=== PATIENT | female | born 1975 | race Caucasian/White ===

== ENCOUNTER 2017-09-26 19:55 | Emergency (ER) | payer SELFPAY, OTHER | END 2017-09-26 20:53 | disposition left against medical advice (07) | LOC: PHED 19:55 | DX: R10.9 Unspecified abdominal pain (principal); Z53.21 Procedure and treatment not carried out due to patient leaving prior to being seen by health care provider | CPT/HCPCS: 99281 ==

== ENCOUNTER 2017-09-26 22:34 | Emergency (ER) | payer OTHER ==
[~2017-09-26 22:34] MED LIST: MELO7.5 PO; METH750T2 PO; MONT10TA2 PO; VENTAER INH
[2017-09-26 23:02] VITALS: BP 137/87; PULSE 99; RESP 18; TEMP 97.8; O2SAT 100
[2017-09-27] MEDS ORDERED: VALT500T PO
[2017-09-27] MEDS ORDERED: LEVO.1 PO
[2017-09-27] MEDS ORDERED: MONT10TA2 PO
[2017-09-27] MEDS ORDERED: SODIUM CHLOR 0.9% 1000 ML INJ 1,000 ML IV SCH (00:20)
[2017-09-27] MEDS ORDERED: MORPHINE SULFATE 4 MG/ML INJ IV PUSH ONE (00:30)
[2017-09-27] MEDS ORDERED: SODIUM CHLORIDE 0.9% FLUSH 10 ML FLUSH IV FLUSH PRN (00:30)
[2017-09-27] MEDS ORDERED: ONDANSETRON HCL 4 MG/2 ML VIAL IVP ONE (00:30)
[2017-09-27] MEDS ORDERED: KETOROLAC TROMETHAMINE 30 MG/ML (IVP) VIAL IVP ONE (00:30)
[2017-09-27] MEDS ORDERED: ONDANSETRON ODT 4 MG TAB PO ONE (00:45)
[2017-09-27 00:53] LABS: AUTOMATED NEUTROPHIL # 7.7 TH/MM3 (1.8-7.7); BASOPHIL % 0.2 % (0.0-2.0); EOSINOPHIL # 0.1 TH/MM3 (0-0.4); EOSINOPHIL % 1.2 % (0.0-4.0); HEMATOCRIT 40.1 % (35.0-46.0); HEMOGLOBIN 13.4 GM/DL (11.6-15.3); LYMPH % 26.2 % (9.0-44.0); MEAN CELL VOLUME 80.7 FL (80.0-100.0); MEAN CORPUSCULAR HGB CONC 33.5 % (32.0-36.0); MEAN PLATELET VOLUME 8.4 FL (7.0-11.0); MONO % 5.7 % (0.0-8.0); MONOCYTE # 0.7 TH/MM3 (0-0.9); NEUT % 66.7 % (16.0-70.0); PLATELET COUNT 231 TH/MM3 (150-450); RED BLOOD COUNT 4.97 MIL/MM3 (4.00-5.30); RED CELL DISTRIBUTION WIDTH 15.3 % (11.6-17.2); WHITE BLOOD COUNT 11.6 TH/MM3 (4.0-11.0)
[2017-09-27 00:54] VITALS: RESP 17; O2SAT 100
[2017-09-27 00:55] VITALS: BP 141/63; PULSE 78; RESP 17; O2SAT 100
[2017-09-27 01:06] LABS: BICARBONATE 27.5 MEQ/L (21.0-32.0); CALCIUM 8.9 MG/DL (8.5-10.1); CREATININE 0.8 MG/DL (0.50-1.00); DIRECT BILIRUBIN ADULT 0.1 MG/DL (0.0-0.2)
[2017-09-27 01:09] LABS: INDIRECT BILIRUBIN 0.5 MG/DL (0.0-0.8); TOTAL BILIRUBIN ADULT 0.6 MG/DL (0.2-1.0); TOTAL PROTEIN 7.8 GM/DL (6.4-8.2)
[2017-09-27] MEDS ORDERED: IOHEXOL 350 MG/ML 10 ML VIAL (for RAD DIAG) IVCONTRAST ONE (01:37)
--- NOTE | 2017-09-27 01:52 | RADRPT ---
EXAM DATE/TIME: 09/27/2017 01:23 [place] COMPARISON: No previous studies available for comparison. INDICATIONS : Abdomen pain. IV CONTRAST: 80 cc Omnipaque 350 (iohexol) IV ORAL CONTRAST: No oral contrast ingested. RADIATION DOSE: 30.08 CTDIvol (mGy) MEDICAL HISTORY : Thyroid disease. SURGICAL HISTORY : None. ENCOUNTER: Initial ACUITY: 1 day PAIN SCALE: 5/10 LOCATION: abdomen TECHNIQUE: Volumetric scanning of the abdomen and pelvis was performed. Using automated exposure control and ad justment of the mA and/or kV according to patient size, radiation dose was kept as low as reasonably achievable to obtain optimal diagnostic quality images. DICOM format image data is available electro nically for review and comparison. FINDINGS: LOWER LUNGS: The visualized lower lungs are clear. LIVER: Homogeneous density without lesion. There is no dilation of the biliary tree. No calcified gallston es. SPLEEN: Normal size without lesion. PANCREAS: Within normal limits. KIDNEYS: There is a 12 mm cyst of the upper pole the right kidney. 4 mm nonobstructing stone seen right mid zo ne the lower pole. There is a 3 mm nonobstructing stone of the left lower pole. ADRENAL GLANDS: Within normal limits. VASCULAR: There is no aortic aneurysm. BOWEL/MESENTERY: Mild diverticulosis of the sigmoid colon. No acute inflammatory changes are demonstrated. The appendi x is well-visualized, normal. There is no free fluid. No free air. ABDOMINAL WALL: Within normal limits. RETROPERITONEUM: There is no lymphadenopathy. BLADDER: No wall thickening or mass. REPRODUCTIVE: Several cysts of the left ovary up to 2.1 cm in size. No perceptible inflammatory changes. No free fl uid. INGUINAL: There is no lymphadenopathy or hernia. MUSCULOSKELETAL: No acute bony abnormality demonstrated. Several subcentimeter sclerotic foci are seen of the bony pel vis, nonspecific but most likely benign bone islands. CONCLUSION: 1. No obstruction or acute inflammatory changes. 2. Several small cysts of the left ovary. 3. Nonobstructing stones in both kidneys. Also a benign-appearing cyst of the right kidney. 4. Mild diverticulosis of the sigmoid colon. No evidence of diverticulitis. Yfn Monahan MD on September 27, 2017 at 1:46 Board Certified Radiologist. This report was verified electronically.
[2017-09-27] MEDS ORDERED: ALUMINUM/MAGNESIUM/SIMETH 30 ML CUP PO ONE (02:30)
[2017-09-27] MEDS ORDERED: LIDOCAINE VISCOUS 2% SOLN 15 ML UDC PO ONE (02:30)
[2017-09-27] MEDS ORDERED: FAMOTIDINE 20 MG/2 ML VIAL IV PUSH ONE (02:30)
[2017-09-27 03:09] LABS: BACTERIA, URINE RARE /hpf; BILIRUBIN, URINE NEG (NEG); BLOOD, URINE TRACE (NEG); GLUCOSE,URINE NEG (NEG); KETONE, URINE 10 mg/dL (NEG); NITRITE,URINE NEG (NEG); SQUAMOUS EPITHELIAL CELL URINE 3 /hpf (0-5); URINE COLOR LIGHT-YELLOW (YELLW/STRAW); URINE LEUKOCYTE ESTERASE NEG (NEG)
--- NOTE | 2017-09-27 04:26 | PD ---
HPI Chief Complaint: Abdominal Pain Time Seen by Provider: 00:10 Travel History International Travel<30 days: No Contact w/Intl Traveler<30days: No Traveled to known affect area: No History of Present Illness HPI Patient is a 41 year old female who comes in complaining of abdominal pain. She says the pain is in her epigastric area close to the right upper quadrant. She says it started early in the morning yesterday. She says that she has felt nauseous, but has not vomited. She denies fever or chills. She has not taken anything for the pain. She has never had this pain before. She denies any urinary symptoms. Severity is mild to moderate. PFSH Past Medical History Hx Anticoagulant Therapy: No Asthma: Yes Cardiovascular Problems: No Chemotherapy: No Cerebrovascular Accident: No Diabetes: No Diminished Hearing: No Respiratory: No Immunizations Current: Yes Pneumonia: Yes Thyroid Disease: Yes (hyper) ?: Not : 2 Para: 2 Past Surgical History Section: Yes (X 2) Gynecologic Surgery: Yes (2 C SECTIONS) Hysterectomy: No Social History Alcohol Use: Yes ("VERY RARELY") Tobacco Use: No Substance Use: No Allergies-Medications (Allergen,Severity, Reaction): Coded Allergies: acetaminophen (Unverified Allergy, Severe, ANAPHYLAXIS, URTICARIA, 09/26/17) Reported Meds & Prescriptions Reported Meds & Active Scripts Active Reported Singulair (Montelukast Sodium) 10 Mg Tab 10 Mg PO HS Valtrex (Valacyclovir HCl) 500 Mg Tab 500 Mg PO TID Synthroid (Levothyroxine Sodium) 100 Mcg Tab 100 Mcg PO DAILY Review of Systems Except as stated in HPI: all other systems reviewed are Neg General / Constitutional: No: Fever, Chills HENT: No: Headaches, Lightheadedness Cardiovascular: No: Chest Pain or Discomfort Respiratory: No: Shortness of Breath Gastrointestinal: Positive: Abdominal Pain Genitourinary: No: Dysuria Skin: No Rash, No Change in Pigmentation Neurologic: No: Weakness, Dizziness Physical Exam Narrative GENERAL: Awake and alert, no acute distress. SKIN: Focused skin assessment warm/dry. No wounds or signs of infection. HEAD: Atraumatic. Normocephalic. EYES: Pupils equal and round. No scleral icterus. ENT: No nasal bleeding or discharge. Mucous membranes pink and moist. NECK: Trachea midline. No JVD. CARDIOVASCULAR: Regular rate and rhythm. No murmur appreciated. RESPIRATORY: No accessory muscle use. Clear to auscultation. Breath sounds equal bilaterally. GASTROINTESTINAL: Abdomen soft, nondistended. Tender to palpation of the midepigastric area as well as right upper quadrant. No rebound or guarding. MUSCULOSKELETAL: No obvious deformities. No clubbing. No cyanosis. No edema. NEUROLOGICAL: Awake and alert. No obvious cranial nerve deficits. Motor grossly within normal limits. Normal speech. PSYCHIATRIC: Appropriate mood and affect; insight and judgment normal. Data Data Last Documented VS Vital Signs Date Time Temp Pulse Resp B/P (MAP) Pulse Ox O2 Delivery O2 Flow Rate FiO2 09/27/17 00:55 78 17 141/63 (89) 100 Room Air 09/26/17 23:02 97.8 Orders Orders Basic Metabolic Panel (Bmp) (09/27/17 00:20) Complete Blood Count With Diff (09/27/17 00:20) Lipase (09/27/17:20) Prothrombin Time / Inr (Pt) (09/27/17:20) Act Partial Throm Time (Ptt) (09/27/17 00:20) Urinalysis - C+S If Indicated (09/27/17 00:20) Ct Abd/Pel W Iv Contrast(Rout) (09/27/17 00:20) Iv Access Insert/Monitor (09/27/17 00:20) Ecg Monitoring (09/27/17 00:20) Oximetry (09/27/17 00:20) Morphine Inj (Morphine Inj) (09/27/17 00:30) Ondansetron Inj (Zofran Inj) (09/27/17 00:30) Sodium Chlor 0.9% 1000 Ml Inj (Ns 1000 M (09/27/17 00:20) Sodium Chloride 0.9% Flush (Ns Flush) (09/27/17 00:30) Ketorolac Inj (Toradol Inj) (09/27/17 00:30) Ed Urine Pregnancytest Poc (09/27/17 00:20) Hepatic Functional Panel (09/27/17 00:20) Ondansetron Odt (Zofran Odt) (09/27/17 00:45) Iohexol 350 Inj (Omnipaque 350 Inj) (09/27/17 01:37) Famotidine Inj (Pepcid Inj) (09/27/17 02:30) Al-Mag Hy-Si 40-40-4 Mg/Ml Liq (Mag-Al P (09/27/17 02:30) Lidocaine 2% Viscous (Xylocaine 2% Visco (09/27/17 02:30) Labs Laboratory Tests Test 09/27/17 00:30 09/27/17 02:40 White Blood Count 11.6 TH/MM3 Red Blood Count 4.97 MIL/MM3 Hemoglobin 13.4 GM/DL Hematocrit 40.1 % Mean Corpuscular Volume 80.7 FL Mean Corpuscular Hemoglobin 27.0 PG Mean Corpuscular Hemoglobin Concent 33.5 % Red Cell Distribution Width 15.3 % Platelet Count 231 TH/MM3 Mean Platelet Volume 8.4 FL Neutrophils (%) (Auto) 66.7 % Lymphocytes (%) (Auto) 26.2 % Monocytes (%) (Auto) 5.7 % Eosinophils (%) (Auto) 1.2 % Basophils (%) (Auto) 0.2 % Neutrophils # (Auto) 7.7 TH/MM3 Lymphocytes # (Auto) 3.0 TH/MM3 Monocytes # (Auto) 0.7 TH/MM3 Eosinophils # (Auto) 0.1 TH/MM3 Basophils # (Auto) 0.0 TH/MM3 CBC Comment DIFF FINAL Differential Comment Prothrombin Time 10.0 SEC Prothromb Time International Ratio 1.0 RATIO Activated Partial Thromboplast Time 26.4 SEC Blood Urea Nitrogen 14 MG/DL Creatinine 0.80 MG/DL Random Glucose 94 MG/DL Total Protein 7.8 GM/DL Albumin 4.0 GM/DL Calcium Level 8.9 MG/DL Alkaline Phosphatase 66 U/L Aspartate Amino Transf (AST/SGOT) 20 U/L Alanine Aminotransferase (ALT/SGPT) 28 U/L Total Bilirubin 0.6 MG/DL Direct Bilirubin 0.1 MG/DL Sodium Level 141 MEQ/L Potassium Level 3.6 MEQ/L Chloride Level 105 MEQ/L Carbon Dioxide Level 27.5 MEQ/L Anion Gap 9 MEQ/L Estimat Glomerular Filtration Rate 79 ML/MIN Indirect Bilirubin 0.5 MG/DL Lipase 74 U/L Urine Color LIGHT-YELLOW Urine Turbidity CLEAR Urine pH 7.0 Urine Specific [place] GREATER THAN 1.050 Urine Protein TRACE mg/dL Urine Glucose (UA) NEG mg/dL Urine Ketones 10 mg/dL Urine Occult Blood TRACE Urine Nitrite NEG Urine Bilirubin NEG Urine Urobilinogen LESS THAN 2.0 MG/DL Urine Leukocyte Esterase NEG Urine RBC 3 /hpf Urine WBC 1 /hpf Urine Squamous Epithelial Cells 3 /hpf Urine Bacteria RARE /hpf Microscopic Urinalysis Comment CULT NOT INDICATED MDM Medical Decision Making Medical Screen Exam Complete: Yes Emergency Medical Condition: Yes Medical Record Reviewed: Yes Differential Diagnosis Gastritis versus pancreatitis versus cholecystitis versus cholelithiasis Narrative Course Patient is a 41-year-old female comes in complaining of abdominal pain. Exam shows tenderness to the epigastric area as well as right upper quadrant. IV established, labs sent. Labs show no acute abnormalities. CT abdomen and pelvis performed shows no acute abnormalities. Last 24 hours Impressions Abdomen/Pelvis CT 09/27/17 0020 Signed Impressions: Service Date/Time: September 01:23 - CONCLUSION: 1. No obstruction or acute inflammatory changes. 2. Several small cysts of the left ovary. 3. Nonobstructing stones in both kidneys. Also a benign-appearing cyst of the right kidney. 4. Mild diverticulosis of the sigmoid colon. No evidence of diverticulitis. Yfn Monahan MD Patient given pain medicine and she reports improvement of her symptoms. She says she started to feel it come back a little bit. She is given a GI cocktail and says she feels much better. She does say that she was taking omeprazole daily, but has recently stopped. She is advised to start this again. I believe her symptoms are probably related to gastritis. Advised follow-up with her doctor and gastroenterology. Advised return to the ED as needed for any worsening symptoms. Diagnosis Primary Impression: Gastritis Qualified Codes: K29.00 - Acute gastritis without bleeding Patient Instructions: Gastritis (ED), General Instructions Additional Instructions: Start taking omeprazole again. Follow-up with your doctor. Return anytime for any worsening symptoms. Disposition: DISCHARGE HOME Condition: Stable Sonia Velez MD September 27, 2017 04:26
== END 2017-09-27 04:51 | disposition home or self-care (01) ==
LOC: NEPE 22:34
DX: K29.00 Acute gastritis without bleeding (principal); K57.30 Diverticulosis of large intestine without perforation or abscess without bleeding; N20.0 Calculus of kidney; N28.1 Cyst of kidney, acquired
CPT/HCPCS: 74177; 80048; 80076; 81001; 83690; 84703; 85025; 85610; 85730; 96374; 96375; 99284; J1885; J2270; J7030; Q9967

== ENCOUNTER 2017-10-09 10:12 | Emergency (ER) | payer OTHER ==
[~2017-10-09] VITALS: Ht 165.1 cm; Wt 135.0 kg
[~2017-10-09 10:12] MED LIST changes: +LEVO.1 PO; -MELO7.5 PO; -METH750T2 PO; +VALT500T PO; -VENTAER INH
[2017-10-09 10:20] VITALS: BP 154/67; PULSE 85; RESP 17; TEMP 98.3; O2SAT 99
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
[2017-10-09] MEDS ORDERED: IBUP1TAB7 PO (11:51)
[2017-10-09] MEDS ORDERED: CYCL10TA PO (11:51)
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
[2017-10-09] MEDS ORDERED: IBUPROFEN 800 MG TAB PO ONE (12:00)
== END 2017-10-09 12:16 | disposition home or self-care (01) ==
LOC: NEPK 10:12
DX: S63.502A Unspecified sprain of left wrist, initial encounter (principal); S16.1XXA Strain of muscle, fascia and tendon at neck level, initial encounter; M79.1 Myalgia; V43.52XA Car driver injured in collision with other type car in traffic accident, initial encounter
CPT/HCPCS: 72125; 73030; 73110; 99284; L3908